=== PATIENT | male | born 1975 | race Caucasian/White ===

== ENCOUNTER 2017-08-22 10:55 | Emergency (ER) | payer SELFPAY ==
[2017-08-22 10:59] VITALS: BMI 27.2
[2017-08-22] MEDS ORDERED: SODIUM CHLORIDE 1,000 ML IV STA (11:19)
[2017-08-22] MEDS ORDERED: ONDANSETRON 4 MG/2 ML VIAL IVPUSH ONE ×2 (11:19→11:49)
[2017-08-22] MEDS ORDERED: KETOROLAC TROMETHAMINE 30 MG/1 ML VIAL IVPUSH STA (11:19)
[2017-08-22] MEDS ORDERED: KETOROLAC TROMETHAMINE 30 MG/1 ML VIAL ONE (11:23)
[2017-08-22] MEDS ORDERED: ONDANSETRON 4 MG/2 ML VIAL ONE ×2 (11:23→11:57)
[2017-08-22 11:38] LABS: BASOPHIL 1.2 % (0-2.0); EOSINOPHIL 0.5 % (0-4.5); MCH 29.9 pg (25.7-33.7); MCHC 33.6 g/dl (32.0-35.9); MEAN CELL VOLUME 88.9 fl (80-96); MEAN PLT VOLUME 8.4 fl (7.5-11.1); NEUTROPHILS 53.6 % (42.8-82.8); PLATELET COUNT 253 K/MM3 (134-434); RDW 13.1 % (11.9-15.9); WHITE BLOOD COUNT 6.7 K/mm3 (4.0-10.0)
[2017-08-22] MEDS ORDERED: HYDROmorphone HCL CARPU-JECT 2 MG/1 ML DISP.SYRIN IVPUSH ONE (11:49)
[2017-08-22] MEDS ORDERED: HYDROmorphone HCL CARPU-JECT 1 MG/1 ML DISP.SYRIN ONE (11:57)
[2017-08-22 12:04] LABS: ALK PHOS 88 U/L (45-117); ANION GAP 14 (8-16); BILIRUBIN,TOTAL 0.5 mg/dL (0.2-1.0); CALCIUM 9.1 mg/dL (8.5-10.1); CO2 19 mmol/L (21-32); CREATININE 1.1 mg/dL (0.7-1.3); GLUCOSE,RANDOM 168 mg/dL (74-106); SGPT/ALT 43 U/L (12-78); TOT PROT 7.3 g/dl (6.4-8.2)
--- NOTE | 2017-08-22 12:06 | PDOC ---
*Physical Exam - Vital Signs Last Vital Signs Temp Pulse Resp BP Pulse Ox 97.4 F L 61 20 133/84 98 08/22/17 10:56 08/22/17 10:56 08/22/17 10:56 08/22/17 10:56 08/22/17 10:56 ED Treatment Course - LABORATORY CBC & Chemistry Diagram: 08/22/17 11:23 08/22/17 11:23 - ADDITIONAL ORDERS Additional order review: 08/22/17 11:23 RBC 4.98 MCV 88.9 MCHC 33.6 RDW 13.1 MPV 8.4 Neutrophils % 53.6 Lymphocytes % 36.7 Monocytes % 8.0 Eosinophils % 0.5 Basophils % 1.2 - Medications Given in the ED: ED Medications Discontinued Medications Generic Name Dose Route Start Last Admin Trade Name Freq PRN Reason Stop Dose Admin Hydromorphone HCl 1 mg 08/22/17 11:49 08/22/17 12:03 Dilaudid Injection - IVPUSH 08/22/17 11:50 1 mg ONCE ONE Administration Ketorolac Tromethamine 30 mg 08/22/17 11:19 08/22/17 11:31 Toradol Injection - IVPUSH 08/22/17 11:20 30 mg ONCE STA Administration Ondansetron HCl 4 mg 08/22/17 11:19 08/22/17 11:31 Zofran Injection IVPUSH 08/22/17 11:20 4 mg ONCE ONE Administration Ondansetron HCl 4 mg 08/22/17 11:49 08/22/17 12:04 Zofran Injection IVPUSH 08/22/17 11:50 4 mg ONCE ONE Administration Medical Decision Making - Medical Decision Making 08/22/17 12:05 Pt seen by the Advanced Practice Provider under my direct supervision Ancillary studies reviewed I agree with plan as outlined by the Advanced Practice Provider NAMITA Dinero *DC/Admit/Observation/Transfer Diagnosis at time of Disposition: Renal colic on right side - Discharge Dispostion Disposition: HOME Condition at time of disposition: Improved - Prescriptions Prescriptions: Oxycodone HCl/Acetaminophen [Percocet 5-325 mg Tablet] 1 - 2 tab PO Q6H PRN #12 tab MDD 4 PRN Reason: Pain Tamsulosin HCl [Flomax] 0.4 mg PO DAILY #7 cap.er.24h - Referrals Referrals: Josh Lemon MD [Staff Physician] - - Patient Instructions Printed Discharge Instructions: DI for Kidney Stones Additional Instructions: Please take Flomax as prescribed for the next 7 days and increase her water intake to 2 L day. Please take Percocet as needed for discomfort. Follow-up with Dr. lemon urologist and return to ED if symptoms worsen. - Post Discharge Activity
[2017-08-22 12:07] LABS: SGOT/AST 19 U/L (15-37)
--- NOTE | 2017-08-22 12:38 | PDOC ---
History of Present Illness - General Chief Complaint: Pain Stated Complaint: VOMITTING Time Seen by Provider: 08/22/17 11:17 History Source: Patient Exam Limitations: No Limitations - History of Present Illness Travel History: No Initial Comments: 08/22/17 12:38 41-year-old male with a past medical history presents the ED with sudden onset of right flank and right abdominal pain that began upon awakening this morning. Patient states pain is sharp causing nausea and vomiting with radiation intimately to his testicle region. Patient states no history of renal colic, gallstones, heavy alcohol use, recent travel, recent illness, fever, chills, diarrhea, or dysuria. Timing/Duration: reports: constant Quality: reports: moderate, sharpness, stabbing Abdominal Pain Onset Location: reports: RLQ, flank Pain Radiation: reports: groin Aggravating Factors: improves with: None Alleviating Factors: improves with: None Past History - Travel Traveled outside of the country in the last 30 days: No Close contact w/someone who was outside of country & ill: No - Past Medical History Allergies/Adverse Reactions: Allergies Allergy/AdvReac Type Severity Reaction Status Date / Time No Known Allergies Allergy Verified 08/22/17 10:59 COPD: No Other medical history: NONE - Suicide/Smoking/Psychosocial Hx Smoking History: Never smoked Substance Use Type: None Patient Lives Alone: No Lives with/in: spouse/SO Review of Systems - Review of Systems Able to Perform ROS?: Yes Constitutional: No: Symptoms Reported HEENTM: No: Symptoms Reported Respiratory: No: Symptoms reported Cardiac (ROS): No: Symptoms Reported ABD/GI: Yes: Nausea, Vomiting, Abdominal cramping : Yes: Flank Pain Musculoskeletal: Yes: Back Pain (rt ) Integumentary: No: Symptoms Reported Neurological: No: Symptoms reported Endocrine: No: Symptoms Reported *Physical Exam - Vital Signs Last Vital Signs Temp Pulse Resp BP Pulse Ox 97.4 F L 61 20 133/84 98 08/22/17 10:56 08/22/17 10:56 08/22/17 10:56 08/22/17 10:56 08/22/17 10:56 - Physical Exam General Appearance: Yes: Nourished, Appropriately Dressed. No: Apparent Distress Respiratory/Chest: positive: Lungs Clear, Normal Breath Sounds. negative: Respiratory Distress, Accessory Muscle Use Cardiovascular: positive: Regular Rhythm, Regular Rate. negative: Murmur Gastrointestinal/Abdominal: positive: Soft, Tenderness (mild RUQ. - murphys. + rt flank and rlq tenderness. + mc burneys, + rt suprapubic pain, No testicular tenderness) Male Genitalia: positive: normal genitalia Musculoskeletal: positive: CVA Tenderness (R) Extremity: positive: Normal Capillary Refill. negative: Pedal Edema Integumentary: positive: Normal Color, Warm, Moist Neurologic: positive: Normal Mood/Affect, Motor Strength 02/05 ED Treatment Course - LABORATORY CBC & Chemistry Diagram: 08/22/17 11:23 08/22/17 11:23 - ADDITIONAL ORDERS Additional order review: Laboratory Results 08/22/17 11:23 Sodium 139 Potassium 4.1 Chloride 106 Carbon Dioxide 19 L Anion Gap 14 BUN 12 Creatinine 1.1 Creat Clearance w eGFR > 60 Random Glucose 168 H Calcium 9.1 Total Bilirubin 0.5 AST 19 ALT 43 Alkaline Phosphatase 88 Total Protein 7.3 Albumin 4.0 Lipase 145 08/22/17 11:23 RBC 4.98 MCV 88.9 MCHC 33.6 RDW 13.1 MPV 8.4 Neutrophils % 53.6 Lymphocytes % 36.7 Monocytes % 8.0 Eosinophils % 0.5 Basophils % 1.2 - RADIOLOGY Radiology Studies Ordered: Category Date Time Status ABDOMEN & PELVIS CT W/O CONTR [CT] Stat CT Scan 08/22/17 12:10 Ordered - Medications Given in the ED: ED Medications Discontinued Medications Generic Name Dose Route Start Last Admin Trade Name Freq PRN Reason Stop Dose Admin Hydromorphone HCl 1 mg 08/22/17 11:49 08/22/17 12:03 Dilaudid Injection - IVPUSH 08/22/17 11:50 1 mg ONCE ONE Administration Sodium Chloride 1,000 mls @ 1,000 mls/hr 08/22/17 11:19 08/22/17 11:45 Normal Saline - IV 08/22/17 12:18 1,000 mls/hr ASDIR STA Administration Ketorolac Tromethamine 30 mg 08/22/17 11:19 08/22/17 11:31 Toradol Injection - IVPUSH 08/22/17 11:20 30 mg ONCE STA Administration Ondansetron HCl 4 mg 08/22/17 11:19 08/22/17 11:31 Zofran Injection IVPUSH 08/22/17 11:20 4 mg ONCE ONE Administration Ondansetron HCl 4 mg 08/22/17 11:49 08/22/17 12:04 Zofran Injection IVPUSH 08/22/17 11:50 4 mg ONCE ONE Administration Medical Decision Making - Medical Decision Making 08/22/17 11:45 Patient with sudden onset of right flank right abdominal pain position nausea and vomiting. Patient exam had tenderness to the right CVA region and right lower quadrant area. Patient with likely renal colic but on the differential is appendicitis, cholecystitis, inflammatory process of the bowel. Patient ordered for IV fluids, CBC, comp, lipase, urine, urine culture, Zofran, and Toradol. Patient also ordered for abdominal CT without contrast. If no relief of pain patient be ordered for Dilaudid 1 mg. 08/22/17 14:32 Laboratory Tests 08/22/17 08/22/17 11:23 11:23 WBC 6.7 Hgb 14.9 Hct 44.2 Plt Count 253 Neutrophils % 53.6 Sodium 139 Potassium 4.1 Chloride 106 Carbon Dioxide 19 L Anion Gap 14 BUN 12 Creatinine 1.1 Creat Clearance w eGFR > 60 Random Glucose 168 H Calcium 9.1 Total Bilirubin 0.5 AST 19 ALT [address] shows normal-appearing appendix. Mild right renal hydroureteronephrosis with suggestive a tiny punctate stone in the distal aspect of the right UVJ versus recent passage of a stone. Otherwise no evidence of acute diverticulitis. Patient feeling much better. Awaiting UA. 08/22/17 14:35 08/22/17 15:41 Laboratory Tests 08/22/17 15:10 Urine Blood 3+ H Urine Nitrite Negative . Patient will be discharged home with Flomax, Percocet recommendations to increase his water intake, and follow-up with urology *DC/Admit/Observation/Transfer Diagnosis at time of Disposition: Renal colic on right side - Discharge Dispostion Disposition: HOME Condition at time of disposition: Improved - Referrals Referrals: Josh Lemon MD [Staff Physician] - - Patient Instructions Printed Discharge Instructions: DI for Kidney Stones Additional Instructions: Please take Flomax as prescribed for the next 7 days and increase her water intake to 2 L day. Please take Percocet as needed for discomfort. Follow-up with Dr. lemon urologist and return to ED if symptoms worsen. - Post Discharge Activity
[2017-08-22 15:18] LABS: URINE APPEARANCE TURBID; URINE BILIRUBIN NEGATIVE (NEGATIVE); URINE BLOOD 3+ (NEGATIVE); URINE COLOR YELLOW; URINE GLUCOSE (UA) NEGATIVE (NEGATIVE); URINE KETONE NEGATIVE (NEGATIVE); URINE NITRITE NEGATIVE (NEGATIVE); URINE PROTEIN NEGATIVE (NEGATIVE); URINE UROBILINOGEN NEGATIVE mg/dL (0.2-1.0)
[2017-08-22 15:43] LABS: URIC ACID CRYSTALS MANY /hpf (NONE SEEN); URINE MUCUS FEW; URINE RBC 98
[2017-08-22 15:45] LABS: URINE WBC 0
[2017-08-22 16:14] VITALS: BP 125/50; PULSE 66; TEMP 98.5
[2017-08-22 18:38] LABS: URINE LEUK ESTERASE Negative (NEGATIVE)
== END 2017-08-22 16:14 | disposition home or self-care (01) ==
LOC: JER 10:55
PROC: 3E0337Z Introduction of Electrolytic and Water Balance Substance into Peripheral Vein, Percutaneous Approach (ICD-10-PCS; principal; 2017-08-22)
PROC: 3E033NZ Introduction of Analgesics, Hypnotics, Sedatives into Peripheral Vein, Percutaneous Approach (ICD-10-PCS; 2017-08-22)
PROC: 3E0333Z Introduction of Anti-inflammatory into Peripheral Vein, Percutaneous Approach (ICD-10-PCS; 2017-08-22)
PROC: 3E033GC Introduction of Other Therapeutic Substance into Peripheral Vein, Percutaneous Approach (ICD-10-PCS; 2017-08-22)
DX: N13.2 Hydronephrosis with renal and ureteral calculous obstruction (principal)
CPT/HCPCS: 36415; 74176-TC; 80053; 81003; 81015; 83690; 85025; 87086; 99284-25

== ENCOUNTER 2021-09-17 19:45 | Inpatient (IN) | payer SELFPAY ==
[2021-09-17 20:47] VITALS: BMI 27.1
[2021-09-17 22:45] LABS: BASO % 0.7 % (0-2.0); EOS % 0.8 % (0-4.5); LYMPH % 24.5 % (8-40); MCH 32.6 pg (25.7-33.7); MEAN CELL VOLUME 93.2 fl (80-96); MEAN PLT VOLUME 8.5 fl (7.5-11.1); MONO % 8.3 % (3.8-10.2); NEUT % 65.7 % (42.8-82.8); PLATELET COUNT 158 10^3/uL (134-434); RDW 12.7 % (11.9-15.9); WHITE BLOOD COUNT 11.6 K/mm3 (4.0-10.0)
[2021-09-17 22:52] LABS: HEMOGLOBIN 4.9 GM/dL (11.7-16.9)
[2021-09-17 22:54] LABS: INR 1.2 (0.83-1.09); PROTHROMBIN TIME (PATIENT) 13.5 SEC (9.7-13.0)
[2021-09-17 22:57] LABS: ACTIVATED PTT 20.7 SECONDS (25.2-36.5)
[2021-09-17 23:09] LABS: ALBUMIN 2.4 g/dl (3.4-5.0); CALCIUM 7.4 mg/dL (8.5-10.1)
[2021-09-17 23:10] LABS: BLOOD UREA NITROGEN 26.4 mg/dL (7-18)
[2021-09-17 23:11] LABS: CREATININE 0.7 mg/dL (0.55-1.3)
[2021-09-17 23:13] LABS: TOT PROT 4.7 g/dl (6.4-8.2)
[2021-09-18 02:02] LABS: BILIRUBIN,TOTAL 0.2 mg/dL (0.2-1)
[2021-09-18 10:54] LABS: BASO % 0.5 % (0-2.0); EOS % 0.3 % (0-4.5); HEMATOCRIT 17.6 % (35.4-49); LYMPH % 22.9 % (8-40); MCH 31.1 pg (25.7-33.7); MCHC 34.5 g/dl (32.0-35.9); MEAN CELL VOLUME 89.9 fl (80-96); MEAN PLT VOLUME 8.5 fl (7.5-11.1); MONO % 8.6 % (3.8-10.2); NEUT % 67.7 % (42.8-82.8); PLATELET COUNT 131 10^3/uL (134-434); RBC 1.96 M/mm3 (4.00-5.60); RDW 14.5 % (11.9-15.9); WHITE BLOOD COUNT 12.3 K/mm3 (4.0-10.0)
[2021-09-18 10:59] LABS: HEMOGLOBIN 6.1 GM/dL (11.7-16.9)
[2021-09-18 11:14] LABS: CALCIUM 7.2 mg/dL (8.5-10.1)
[2021-09-18 11:15] LABS: ALBUMIN 2.1 g/dl (3.4-5.0); BLOOD UREA NITROGEN 15.8 mg/dL (7-18); MAGNESIUM 2.3 mg/dL (1.8-2.4)
[2021-09-18 11:18] LABS: CREATININE 0.7 mg/dL (0.55-1.3); PHOSPHOROUS 2.5 mg/dL (2.5-4.9)
[2021-09-18 11:19] LABS: BILIRUBIN,TOTAL 0.3 mg/dL (0.2-1); TOT PROT 4.3 g/dl (6.4-8.2)
[2021-09-18 16:19] LABS: BASO % 0.5 % (0-2.0); HEMATOCRIT 20.8 % (35.4-49); HEMOGLOBIN 7.1 GM/dL (11.7-16.9); LYMPH % 23.8 % (8-40); MCH 30.3 pg (25.7-33.7); MCHC 33.9 g/dl (32.0-35.9); MEAN CELL VOLUME 89.5 fl (80-96); MEAN PLT VOLUME 8.1 fl (7.5-11.1); MONO % 7.2 % (3.8-10.2); NEUT % 67.5 % (42.8-82.8); PLATELET COUNT 125 10^3/uL (134-434); RBC 2.32 M/mm3 (4.00-5.60); RDW 14.7 % (11.9-15.9)
[2021-09-19 09:15] LABS: BASO % 0.6 % (0-2.0); EOS % 2.6 % (0-4.5); HEMATOCRIT 22.2 % (35.4-49); HEMOGLOBIN 7.6 GM/dL (11.7-16.9); LYMPH % 23.7 % (8-40); MCH 30.7 pg (25.7-33.7); MCHC 34.2 g/dl (32.0-35.9); MEAN CELL VOLUME 89.8 fl (80-96); MEAN PLT VOLUME 8.5 fl (7.5-11.1); MONO % 5.9 % (3.8-10.2); NEUT % 67.2 % (42.8-82.8); PLATELET COUNT 153 10^3/uL (134-434); RBC 2.47 M/mm3 (4.00-5.60); RDW 14.7 % (11.9-15.9); WHITE BLOOD COUNT 9.8 K/mm3 (4.0-10.0)
[2021-09-19 09:37] LABS: BLOOD UREA NITROGEN 7.3 mg/dL (7-18); CALCIUM 7.5 mg/dL (8.5-10.1)
[2021-09-19 09:41] LABS: CREATININE 0.6 mg/dL (0.55-1.3)
[2021-09-20 10:32] LABS: HEMOGLOBIN 8.9 GM/dL (11.7-16.9); MCH 31.3 pg (25.7-33.7); MCHC 34.2 g/dl (32.0-35.9); MEAN CELL VOLUME 91.5 fl (80-96); MEAN PLT VOLUME 8.1 fl (7.5-11.1); PLATELET COUNT 214 10^3/uL (134-434); RBC 2.84 M/mm3 (4.00-5.60); RDW 14.6 % (11.9-15.9); WHITE BLOOD COUNT 8.9 K/mm3 (4.0-10.0)
[2021-09-20 10:58] LABS: BLOOD UREA NITROGEN 6.4 mg/dL (7-18); CALCIUM 8.3 mg/dL (8.5-10.1)
[2021-09-20 11:02] LABS: CREATININE 0.9 mg/dL (0.55-1.3)
[2021-09-20 11:03] LABS: BILIRUBIN,TOTAL 0.7 mg/dL (0.2-1); TOT PROT 5.8 g/dl (6.4-8.2)
[2021-09-20 18:04] VITALS: BP 112/66; PULSE 66; TEMP 98
== END 2021-09-20 18:05 | disposition home or self-care (01) | DRG 241 ==
LOC: JER 19:45 → JERBED 09-18 01:35 → J6S 09-18 16:24
PROVIDERS: ADMIT Internal Medicine; ATTEND Internal Medicine
PROC: 0DB98ZX Excision of Duodenum, Via Natural or Artificial Opening Endoscopic, Diagnostic (ICD-10-PCS; principal; 2021-09-18)
PROC: 0D598ZZ Destruction of Duodenum, Via Natural or Artificial Opening Endoscopic (ICD-10-PCS; 2021-09-18)
PROC: 30233N1 Transfusion of Nonautologous Red Blood Cells into Peripheral Vein, Percutaneous Approach (ICD-10-PCS; 2021-09-18)
DX: K26.4 Chronic or unspecified duodenal ulcer with hemorrhage (principal); K21.9 Gastro-esophageal reflux disease without esophagitis; D62 Acute posthemorrhagic anemia; I95.9 Hypotension, unspecified; F17.210 Nicotine dependence, cigarettes, uncomplicated; F10.20 Alcohol dependence, uncomplicated; R42 Dizziness and giddiness; K29.70 Gastritis, unspecified, without bleeding
CPT/HCPCS: 36415; 36430; 36511; 71045-TC-FY; 71260-TC; 74177-TC; 76705-TC; 80048; 80053; 82272; 82728; 82962; 83010; 83540; 83550; 83605; 83615; 83735; 84100; 84466; 84484; 85025; 85027; 85610; 85730; 86850; 86900; 86901; 86922; 88305-TC; 93005; 93010; 99291; 99292; C9803; P9038; P9058; Q9967; U0003; U0005